=== PATIENT | female | born 1980 | race Native Hawaiian/Other Pacific Islander ===

== ENCOUNTER 2016-11-21 00:17 | Inpatient (IN) | payer BC, OTHER ==
[2016-11-21 00:48] VITALS: BMI 30.8
[2016-11-21] MEDS ORDERED: ceFAZolin 1 GM in Sodium Chloride 0.9% 100 ML IVPB ONE (00:50)
[2016-11-21 01:50] VITALS: O2SAT 100
[2016-11-21 02:05] LABS: BASO % 0.2 % (0.0-2.0); EOS # 0.1 K/uL (0.0-0.7); HEMATOCRIT 34.8 % (34.0-47.0); LYMPH # 2.6 K/uL (1.0-4.3); LYMPH % 27.6 % (20.0-40.0); MEAN CELL VOLUME 85.8 fl (81.0-99.0); MEAN CORPUSCULAR HEMOGLOBIN 28.9 pg (27.0-31.0); MEAN CORPUSCULAR HGB CONC 33.7 g/dL (33.0-37.0); MEAN PLATELET VOLUME 9.3 fl (7.2-11.7); MONO # 0.9 K/uL (0.0-0.8); MONO % 9.5 % (0.0-10.0); NEUT # 5.8 K/uL (1.8-7.0); NEUT % 61.7 % (50.0-75.0); NRBC % 0.1 % (0.0-0.0); RED CELL DISTRIBUTION WIDTH 14.1 % (11.5-14.5); WHITE BLOOD COUNT 9.4 K/uL (4.8-10.8)
[2016-11-21] MEDS: Lactated Ringer's 1,000 ML IV SCH ×2 (05:18→05:33)
--- NOTE | 2016-11-21 06:08 | OBHP ---
Datetime: 11/21/2016 01:30 IP Adm Impression: Term, intrauterine ; No Active Labor; Intact Membranes IP Admit Plan: Admit to unit; Initiate Section protocol Pelvic Type - PN: Adequate Extremities - PN: Normal Abdomen - PN: Normal Back - PN: Normal Breast - PN: Not Done Lungs - PN: Normal Heart - PN: Normal Thyroid - PN: Not Done Neurologic - PN: Normal HEENT - PN: Normal General - PN: Normal IP Hx Assessment: The History has been Reviewed and is Current EGA AdmitDate IP: 39.1 Vital Signs Provider: Reviewed; Within Normal Limits IP Chief Complaint: Scheduled Section Genitourinary Exam: Not Done DTRs - PN: Not Done Datetime: 11/21/2016 01:00 Admit Comment, IP Provider: CHIEF COMPLAINT: Scheduled Section. HPI: 36 yo at 39.1 wks GA with EDC by us ...+: FM; - ROM, VB, CTX last U/S? 11/13/2016 last visit? 11/15/2016 GBS? neg 11/01/2016 PAST OB HX: 2012 C/S: Arrest of Descent @ 41 week, F PAST MECHANICAL TECHNICIAN HX: STD: HIV: -; GC/C: -; RPR: -, Rubella: -; PAP: 05/15/16; PMHX: none PAST SX HX: C/S 2012 SOCIAL HX: Denies: SMOKING ,ALCOHOL ,DRUGS MEDICATION: PNV; DHA omega 3 ALLERGIES: NKDA VITALS: 107/65; 73; 98.0; 18; 100% PE: General: pleasant, in no acute distress HEENT: normocephalic, PERRLA; AAOx3 Heart: no murmurs, regular rate and rhythm, S1, S2 normal. Lungs: clear to auscultation bilaterally, no wheezing Abodmen: gravid SSE/PELVIC EXN: n/a Bed side u/s: n/a MONITOR (normal) Variablity: moderate: ACC: 15x15 DECC: none FHR: 130 ASSESSMENT: 36 yo at 40.1 wks with h/o c/s in 2013 admitted for induction of labor. PLAN: Admit for induction of labor OB attending note: Pt seen and agree with PGY1 note IUP 39w Previous C/S x 1 declined Rh neg AMA PLAN for C/S FHR - Baseline A Provider: 130 NICHD Variability Prov Fetus A: Moderate 6-25bpm NICHD Accel Fetus A IP Provider: 15X15 FHR Category Provider Fetus A: Category I NICHD Decel Fetus A IP Provider: None
--- NOTE | 2016-11-21 06:16 | OBADHP ---
Datetime: 11/21/2016 01:30 Admit Comment, IP Provider: CHIEF COMPLAINT: Scheduled Section. HISTORY OF PRESENT ILLNESS: 36 yo, female, G2Pa, IUP @ 39.1 weeks by us. PAST OB HX: 2012 C/S: Arrest of descent @ 41 week, F CARE and labs: GBS: -; ABO: B-; Ab: -; HIV: -; RPR: -; GC/C: -; Rubella: -; HBsAg: -; TDa p: 10/04/2016 PAST MEDICAL HISTORY: none PAST SURGICAL HISTORY: C/S 2012 PAST SOCIAL HISTORY: Denies: Smoking/Alcohol/Drugs ALLERGIES: none PHYSICAL EXAM Vital signs 107/65; 73; 98.0; 8; 100% General: pleasant, in no acute distress HEENT: normocephalic, PERRLA; AAOx3 Heart: no murmurs, regular rate and rhythm, S1, S2 normal. Lungs: clear to auscultation bilaterally, no wheezing Abodmen: gravid LOWER EXTREMITIES: abulatory; no signs of edema PELVIC: N/A MONITOR Baseline Heart Rate: 130 Accelerations: 15x15 Variable Moderate 6-25 bpm Deceleration: None Contractions: none Category I ASSESSMENT: Intrauterine at 39.1 GA weeks. PLAN: Admit to Labor and Delivery, CBC/Type and Screen/RPR, Intravenous access, Monitoring, Monito r Labor progress, Discussion about her condition including delivery, pain management, and care OB attending note: Pt seen and agree with PGY1 note IUP 39w Previous C/S x 1 declined Rh neg AMA PLAN for C/S Pelvic Type - PN: Adequate Extremities - PN: Normal Abdomen - PN: Normal Back - PN: Normal Breast - PN: Not Done Lungs - PN: Normal Heart - PN: Normal Thyroid - PN: Not Done Neurologic - PN: Normal HEENT - PN: Normal General - PN: Normal IP Hx Assessment: The History has been Reviewed and is Current Vital Signs Provider: Reviewed; Within Normal Limits IP Chief Complaint: Scheduled Section Genitourinary Exam: Not Done DTRs - PN: Not Done EGA AdmitDate IP: 39.1 IP Adm Impression: Term, intrauterine ; No Active Labor; Intact Membranes IP Admit Plan: Admit to unit; Initiate Section protocol Datetime: 11/21/2016 01:00 FHR - Baseline A Provider: 130 NICHD Variability Prov Fetus A: Moderate 6-25bpm NICHD Accel Fetus A IP Provider: 15X15 FHR Category Provider Fetus A: Category I NICHD Decel Fetus A IP Provider: None
[2016-11-21] MEDS ORDERED: ePHEDrine 50 mg/ml Inj ONE (06:19)
[2016-11-21] MEDS ORDERED: Phenylephrine 10 mg/ml Inj ONE (06:19)
[2016-11-21] MEDS ORDERED: Morphine 1 mg/ml preservative-free Inj(Duramorph) ONE (06:23)
[2016-11-21] MEDS ORDERED: Sodium Chloride 0.9% 10 ML IV ONE (06:47)
[2016-11-21] MEDS ORDERED: Oxycodone/Acetaminophen 5/325 mg Tab PO PRN (07:02)
[2016-11-21] MEDS ORDERED: Naloxone 0.4 mg/ml Inj (Adult) IVP PRN ×2 (07:02→11:28)
--- NOTE | 2016-11-21 08:00 | OBDS ---
DELIVERY PERSONNEL Delivery Doctor: Sampson Montoya DO/Laith Valdes MD Scrub Nurse: Génesis Ward OBT Care Team Assistant: Juany/Finn Anesthesiologist: Ken Stewart MD/ Courtney Resident: Ligia Haynes MATERNAL INFORMATION Delivery Anesthesia: Spinal Medications in Delivery: Pitocin Estimated Blood Loss (ml): 200 Placenta Cultured: No Maternal Complications: None Provider Comments: Pre Op Dx: IUP at 39w/previous C/S x1 declined Post Op Dx: same; two loose nuchal cord; true knot x 1 Procedure: Repeat LTCS via previous Pfannenstiel incision and cord blood collection Surgeon: Dr Lindsay Valdes Anesth: Dr Stewart and Dr Courtney Matute spinal Finding: -live male infant delivreed form the [facility] presentation - 9,9 -clear Fluid -two loose nuchal cords/one true knot placenta delivered intact maunally Ovaries and tuibes WNL grossly She remained stable EBL 800cc LABOR SUMMARY EDC: 11/27/2016 00:00 No. Babies in Womb: 1 Attempted: No Labor Anesthesia: Spinal LABOR INFORMATION Reason for Induction: Not Applicable Oxytocin: N/A Group B Beta Strep: Negative Antibiotics # of Doses: 1 Antibiotics Time of Last Dose: 0600 Steroids Given: None Reason Steroids Not Administered: Not Applicable MEMBRANES Membranes Rupture Method: Artificial Rupture of Membranes: 11/21/2016 06:54 Length of Rupture (hrs): 0.02 Amniotic Fluid Color: Clear Amniotic Fluid Amount: Moderate Amniotic Fluid Odor: Normal STAGES OF LABOR Stage 3 hrs: 0 Stage 3 min: 1 BABY A INFORMATION Infant Delivery Date/Time: 11/21/2016 06:55 Method of Delivery: Born in Route : No : N/A Forceps: N/A Vacuum Extraction: N/A Shoulder Dystocia : No SHOULDER DYSTOCIA BABY A Infant Delivery Date/Time: 11/21/2016 06:55 PRESENTATION/POSITION BABY A Presentation: Cephalic PLACENTA INFORMATION BABY A Placenta Delivery Time : 11/21/2016 06:56 Placenta Method of Delivery: Expressed Placenta Status: Delivered SCORES BABY A Heart Rate 1 min: >100 bpm Resp Effort 1 min: Good Cry Reflex Irritability 1 min: Cough or Sneeze or Pulls Away Muscle Tone 1 min: Active Motion Color 1 min: Body [place], Extremities Blue Resuscitation Effort 1 min: Tactile Stimulation SCORE 1 MIN: 9 Heart Rate 5 min: >100 bpm Resp Effort 5 min: Good Cry Reflex Irritability 5 min: Cough or Sneeze or Pulls Away Muscle Tone 5 min: Active Motion Color 5 min: Body [place], Extremities Blue Resuscitation Effort 5 min: N/A SCORE 5 MIN: 9 INFANT INFORMATION BABY A Gestational Age at Delivery: 39.1 Gestational Status: Term Outcome : Liveborn Condition : Stable Sex: Male IDENTIFICATION/MEDS BABY A ID Band Number: [id number] ID Band Location: Left Leg; Left Arm Vitamin K Given : Not Given Erythromycin Given: Not Given WEIGHT/LENGTH BABY A Birthweight (gms): 3310 Weight (lb): 7 Weight (oz): 5 Infant Length Inches: 20.50 Infant Length cms: 52.1 CORD INFORMATION BABY A No. Cord Vessels: 3 Nuchal Cord : Around Neck x2, Loose Nuchal Cord Other: n/a True Knot: 1 Cord pH Baby Arterial: n/a Cord pH Baby Venous: n/a Cord Blood Taken: Yes Banking/Donate Info: [employer] Infant Suction: Mouth; Nose ASSESSMENT BABY A Infant Complications: None Physical Findings at Delivery: Within Normal Limits Infant Respirations: Appears Normal Shellfish Grower/ALS Called : No Care By: Dr Arango/Braulio/Kiah Transferred To: Nursery
[2016-11-21] MEDS ORDERED: Lactated Ringer's 1,000 ML IV SCH (19:30)
[2016-11-22] MEDS: Oxycodone/Acetaminophen 5/325 mg Tab PO PRN ×3 (01:31→21:23)
[2016-11-22] MEDS ORDERED: Pneumococcal 23-Valent Vaccine IM ONE (07:08)
[2016-11-22 07:37] LABS: HEMATOCRIT 32.3 % (34.0-47.0); MEAN CELL VOLUME 86.2 fl (81.0-99.0); MEAN CORPUSCULAR HEMOGLOBIN 28.6 pg (27.0-31.0); MEAN CORPUSCULAR HGB CONC 33.2 g/dL (33.0-37.0); RED CELL DISTRIBUTION WIDTH 14.6 % (11.5-14.5); WHITE BLOOD COUNT 14.5 K/uL (4.8-10.8)
--- NOTE | 2016-11-22 08:06 | OBPPN ---
Datetime: 11/22/2016 08:01 PP Pain Prov: Within normal limits PP Nausea Prov: Denies PP Flatus Prov: Yes PP BM Prov: No PP Breasts Prov: Normal PP Heart Prov: Normal PP Lungs Prov: Normal PP Abdomen/Uterus Prov: Normal PP Lochia Prov: Normal PP Vulva/Perineum Prov: Normal PP CVA Tenderness Prov: Normal PP Extremities Prov: Normal PP C/S Incision Prov: Normal PP Progress Prov: Normal PP Impression Prov: Normal progression PP Plan Prov: Continue present management PP Progress Note Prov: She feels fine after Percset last night. A; S/P repeat C/S day 1 cont postop care Vital Signs Provider PP: Within Normal Limits Datetime: 11/21/2016 03:49 PP Comments Phys Exam Prov: Checked on patient; She is resting well; Continue to monitor.
[2016-11-22] MEDS: Prenatal Multivit/Folic Acid/Iron Tab PO SCH (09:01)
[2016-11-23] MEDS: Oxycodone/Acetaminophen 5/325 mg Tab PO PRN ×3 (01:26→14:16)
--- NOTE | 2016-11-23 03:17 | OP ---
PROCEDURE DATE: 11/21/2016 PREOPERATIVE DIAGNOSES: Intrauterine of 39 weeks gestation, previous section x1, declining vaginal after section. POSTOPERATIVE DIAGNOSES: 1. Intrauterine of 39 weeks gestation, previous section x1, declining vaginal after section. 2. 2 loose nuchal cords noted as well as true knot x1. PROCEDURE: Repeat low transverse section via previous Pfannenstiel incision with cord blood collection. SURGEON: Dr. Amrik Montoya. IT DESKTOP SUPPORT SPECIALIST: Dr. Nick Valdes (Dr. Nick Valdes is a board certified C[employer] HAND physician who happened to be available to assist on this difficult case. He was present from time of incision to closure of the incision. There was no resident available and his presence was necessary to assist on this case). TYPE OF ANESTHESIA: Spinal. ANESTHESIA ADMINISTERED BY: Dr. Hernandes and Dr. Valdez OPERATIVE FINDINGS: Live male delivered from the cephalic presentation, clear amniotic fluid noted, score 9 and 9 given at 1 and 5 minutes respectively. 2 loose nuchal cords noted, 1 true knot noted in the umbilical cord. Placenta was delivered intact manually. The ovaries and fallopian tubes appeared to be within normal limits grossly. She remains hemodynamically stable throughout the procedure. ESTIMATED BLOOD LOSS: 800 mL All equipments, sponge, and needles accounted for. DESCRIPTION OF PROCEDURE: Gloria was brought to the operating room. She was given spinal anesthesia by Dr. Hernandes. She was placed in supine position. Compression boots were placed on both lower extremities, a Barksdale catheter was used to drain the bladder of its contents and left in place. She was then draped and prepped in the usual sterile manner. Once adequate anesthesia was confirmed and obtained, an incision was made through the previous surgical scar, surgical scare was removed using a scalpel. The incision was then taken down to underlying fascia using electrocautery. Fascia was nicked in the midline and extended bilaterally using electrocautery. Inferior aspect of the fascia was grasped using 2 Nolan clamps and tented up and the rectus muscle was both bluntly and sharply dissected. Using electrocautery the same was done with the superior aspect of the fascia. In the midline superiorly, the rectus muscle was noted to be slightly and this was then bluntly dissected until we identify the peritoneum. Peritoneum was tented up using 2 Maxine clamps and then incised using Metzenbaum scissors. The incision was then extended superiorly and inferiorly with direct visualization of the bladder and intestines. Bladder blade was then inserted. Weighted lap pads were placed in the paracolic gutters. Incision was made above the bladder line using Metzenbaum scissors and extended bilaterally and then bladder flap was created digitally. Bladder blade was then inserted behind the bladder flap. A low transverse incision was made using a scalpel. Upon entering the uterus incision was then extended bilaterally using band scissors. Rupture of membranes was performed using forceps with teeth, clear amniotic fluid was noted. Incision was then extended bilaterally using Band-Aid scissors. Thereafter, the infant's head was delivered as atraumatically as possible. Two loose nuchal cords were noted and these were reduced successfully. The remainder of the infant was then delivered as atraumatically as possible. The was bulb suctioned nasopharyngeally, crying spontaneously. Cord was clamped and cut, also 1 true knot was noted upon delivery of the infant. The infant was handed to the cupola melter in attendance. Placenta was delivered intact manually. Uterus was then exteriorize, cleared of debris and clots. Lower uterine segment was identified and grasped using T clamps and Allis clamps. 0 Vicryl suture was used for closing the first layer of the uterus. Second layer of the uterus was closed using 0 Vicryl suture imbricating the first layer. Good hemostasis was assured. Ovaries and tubes appeared to be within normal limits grossly. Posterior cul-de-sac was noted to be clear of debris and clots. Uterus was placed back into peritoneal cavity. Lower uterine segment was noted to have good hemostasis 0 Vicryl suture was used to approximate the peritoneum in a running fashion. Rectus muscles was noted to have good hemostasis and 0 Vicryl suture was used to approximate the rectus muscle x3. Thereafter, 0 Vicryl suture was used to approximate the fascia in a running manner. Irrigation was performed. Hemostasis was assured using electrocautery. 2-0 plain suture was used x3 to approximate the subcuticular layer. 3-0 Vicryl suture was used to approximate the skin. Dermabond, Steri-Strips and pressure bandage was applied. All equipments, sponges, and needles accounted for. She was brought to the recovery room in stable condition. Amrik Montoya DO [facility] # [id number]
[2016-11-23] MEDS: Prenatal Multivit/Folic Acid/Iron Tab PO SCH (09:38)
--- NOTE | 2016-11-24 08:04 | OBPPN ---
Datetime: 11/24/2016 08:02 PP Pain Prov: Within normal limits PP Nausea Prov: Denies PP Flatus Prov: Yes PP BM Prov: Yes PP Breasts Prov: Normal PP Heart Prov: Normal PP Lungs Prov: Normal PP Abdomen/Uterus Prov: Normal PP Lochia Prov: Normal PP Vulva/Perineum Prov: Normal PP CVA Tenderness Prov: Normal PP Extremities Prov: Normal PP C/S Incision Prov: Normal PP Progress Prov: Normal PP Impression Prov: Normal progression PP Plan Prov: Discharge PP Impression Other Prov: Rh neg - given Rhogam PP Progress Note Prov: AA: S/P C/section day 3 discharge home and follow up as scheduled 1-2w Vital Signs Provider PP: Reviewed; Within Normal Limits
[2016-11-24] MEDS: Prenatal Multivit/Folic Acid/Iron Tab PO SCH (08:52)
[2016-11-24] MEDS: Oxycodone/Acetaminophen 5/325 mg Tab PO PRN (08:55)
[2016-11-24 18:06] VITALS: BP 108/77; PULSE 80; RESP 20; TEMP 98.4
== END 2016-11-24 13:15 | disposition home or self-care (01) | DRG 766 ==
LOC: H.EROB2 00:17 → H.L&D 00:40 → H.OB/GYN 11:29
PROVIDERS: ADMIT Obstetrics & Gynecology; ATTEND Obstetrics & Gynecology
PROC: 10D00Z1 Extraction of Products of Conception, Low, Open Approach (ICD-10-PCS; principal; 2016-11-21)
PROC: 4A1HXCZ Monitoring of Products of Conception, Cardiac Rate, External Approach (ICD-10-PCS; 2016-11-21)
DX: O34.211 Maternal care for low transverse scar from previous cesarean delivery (principal); N85.8 Other specified noninflammatory disorders of uterus; O48.0 Post-term pregnancy; O69.81X0 Labor and delivery complicated by cord around neck, without compression, not applicable or unspecified; Z37.0 Single live birth; Z3A.40 40 weeks gestation of pregnancy